=== PATIENT | female | born 1970 | race Caucasian/White ===

== ENCOUNTER 2018-04-01 09:48 | Emergency (ER) | payer OTHER ==
[2018-04-01 09:59] VITALS: BP 140/79; BMI 21.7
--- NOTE | 2018-04-01 11:29 | DR.GENAD ---
HPI - PCP Primary Care Physician: VIANCA - HPI Comment HPI Comment: WORSE TODAY. NO FEVER. US DONE IN [place] [facility]. CONTINUE TO GET WORSE. PENDING CT STUDIES. STARTED HAVING GI BLEED, PASSING BLOOD CLOTS TODAY. PAIN IS INCREASING. - Complaint/Symptoms Chief Complaint Doctors Comments: RLQ ABDOMINAL PAIN TIMES 3 MONTHS. Chief Complaint:: PT STATED SHE HAS BEEN HAVING ABD PAIN ON HER RIGHT SIDE FOR 3 MONTHS. HAD PELVIC US DONE IN [place]. SHE ALSO STATED SHE BEEN HAVING LOOSE STOOL AND BRIGHT BLOOD - Nurses notes reviewed Nurses Notes Review: Yes - Source History Provided: Patient - Mode of Arrival Mode of Arrival: Ambulatory - Timing Onset of Chief Complaint: 01/23/18 Came on: Suddenly - Duration Duration: Constant Duration: Days - Severity Severity: Moderate PMH - PMH Past Medical History: Yes Past Medical History: Anxiety Past Surgical History: Yes Surgical History: , Ectopic , [employer] INSTITUTION Surgery - Family History History of Family Medical Conditions: Yes Family Medical History: Diabetes Mellitus, Cancer, [place], Heart Failure - Social History Does patient currently use any type of tobacco product: Yes Have you used tobacco products in the last 12 months: Yes Type of Tobacco Use: Cigarettes How many years tobacco product used: 15 Does any household member use tobacco: No Alcohol Use: Rarely Do you use any recreational Drugs:: No Lives With: Family - infectious screening In the last 2 months have you had wt loss of >10#?: NO Have you had fever, night sweats or hemotysis?: No Have you traveled outside the country in the last 6 months?: No Isolation: Standard ROS - Review of Systems Constitutional: No Symptoms Reported Eyes: No Symptoms Reported ENTM: No Symptoms Reported Respiratoy: No Symptoms Reported Cardiovascular: No Symptoms Reported Gastrointestinal/Abdominal: Abdominal Pain, Diarrhea, Nausea, Vomiting Genitourinary: No Symptoms Reported. negative: Dysuria, Hematuria Neurological: Headache, Weakness, Dizziness Musculoskeletal: Muscle Pain Integumentary: No Symptoms Reported, Change in Color Hematologic/Lymphatic: No Symptoms Reported Endocrine: No Symptoms Reported Psychiatric: No Symptoms Reported All Other Systems: Reviewed and Negative PE - Vital Signs Vitals: Temperature 98.9 F Pulse Rate 72 Respiratory Rate 16 Blood Pressure 140/79 O2 Sat by Pulse Oximetry 99 - General Limitations: No Limitations General Appearance: Alert - Head Head Exam: Normal Inspection - Eyes Eye exam: Normal Appearance - ENT ENT Exam: Normal External Ear Exam External Ear Exam: Normal External Inspection TM/Canal Exam: Bilateral Normal Nose Exam: Normal Nose Exam Mouth Exam: Normal Inspection Throat Exam: Normal Inspection - Neck Neck Exam: Normal Inspection - Chest Chest Inspection: Symmetric Chest Wall Rise - Respiratory Respiratory Exam: Normal Lung Sounds Bilat Respiratory Exam: Bilateral Clear to Auscultation - Cardiovascular Cardiovascular Exam: Regular Rate, Normal Rhythm, Normal Heart Sounds - Abdominal Exam Abdominal Exam: Normal Bowel Sounds, Soft, Tenderness Abdominal Tenderness: RLQ, Moderate, Other (SOME DIFFUSE DISCOMFORT) - Extremities Extremities Exam: Normal Inspection - Back Back Exam: Normal Inspection - Neurologic Neurological Exam: Alert, Oriented X3 - Psychiatric Psychiatric Exam: Normal Affect, Normal Mood - Skin Skin Exam: Normal Color MDM - Additional Information Additional Information Obtained From: Family - Differential Diagnosis Differential Diagnosis: RLG ABDOMINAL PAIN, GI BLEEDING, APPENDICITIS, KIDNEY STONE, UTI, DIVERTICU Course - Treatment Treatment: SEE ORDERS. IV PROTONIX AND IV PHENERGAN IN ED. ROR - Labs Reviewed Laboratory Results Reviewed?: Yes Result Diagrams: 04/01/18 11:45 04/01/18 11:45 Laboratory: WBC 6.8 X10^3/uL (3.6-10.0) 04/01/18 11:45 RBC 4.76 X10^6/uL (3.5-5.4) 04/01/18 11:45 Hgb 14.1 g/dL (12.0-16.0) 04/01/18 11:45 Hct 40.7 % (36.0-47.0) 04/01/18 11:45 MCV 85.4 fL (80.0-100.0) 04/01/18 11:45 MCH 29.5 pg (27.0-34.0) 04/01/18 11:45 MCHC 34.6 g/dL (33.0-35.0) 04/01/18 11:45 RDW 13.5 % (11.6-16.5) 04/01/18 11:45 Plt Count 204 X10^3/uL (150.0-450.0) 04/01/18 11:45 MPV 10.1 fL (7.4-11.0) 04/01/18 11:45 Neut % (Auto) 55.9 % (42.0-75.0) 04/01/18 11:45 Lymph % (Auto) 36.2 % (21.0-51.0) 04/01/18 11:45 [place] % (Auto) 6.2 % (0.0-13.0) 04/01/18 11:45 Eos % (Auto) 0.9 % (0.9-2.9) 04/01/18 11:45 Baso % (Auto) 0.8 % (0.2-1.0) 04/01/18 11:45 Neut # (Auto) 3.8 x10^3/uL (2.2-4.8) 04/01/18 11:45 Lymph # (Auto) 2.5 X10^3/uL (1.3-2.9) 04/01/18 11:45 [place] # (Auto) 0.4 x10^3/uL (0.3-0.8) 04/01/18 11:45 Eos # (Auto) 0.1 x10^3/uL (0.0-0.2) 04/01/18 11:45 Baso # (Auto) 0.1 X10^3/uL (0.0-0.1) 04/01/18 11:45 Absolute Nucleated RBC 0.0 /100WBC 04/01/18 11:45 Sodium 138 mmol/L (136-145) 04/01/18 11:45 Corrected Sodium TNP 04/01/18 11:45 Potassium 3.7 mmol/L (3.5-5.1) 04/01/18 11:45 Chloride 106 mmol/L (98-107) 04/01/18 11:45 Carbon Dioxide 27.2 mmol/L (21-32) 04/01/18 11:45 BUN 14 mg/dL (7-18) 04/01/18 11:45 Creatinine 0.77 mg/dL (0.55-1.02) 04/01/18 11:45 Est GFR (MDRD) Af Amer > 60 (>60) 04/01/18 11:45 Est GFR (MDRD) Non-Af > 60 (>60) 04/01/18 11:45 Glucose 90 mg/dL (65-99) 04/01/18 11:45 Calcium 8.4 mg/dL (8.5-10.1) L 04/01/18 11:45 Corrected Calcium TNP 04/01/18 11:45 Total Bilirubin 0.40 mg/dL (0.2-1.0) 04/01/18 11:45 AST 9 Units/L (15-37) L 04/01/18 11:45 ALT 11 Units/L (12-78) L 04/01/18 11:45 Alkaline Phosphatase 57 Units/L (46-116) 04/01/18 11:45 Total Protein 7.2 g/dL (6.4-8.2) 04/01/18 11:45 Albumin 3.9 g/dL (3.4-5.0) 04/01/18 11:45 Globulin 3.3 g/dL (2.5-4.5) 04/01/18 11:45 Albumin/Globulin Ratio 1.2 Ratio (1.1-2.1) 04/01/18 11:45 Triglycerides 79 mg/dL (0-150) 04/01/18 11:45 Cholesterol 172 mg/dL (0-200) 04/01/18 11:45 LDL Cholesterol, Calc 78 mg/dL (0-100) 04/01/18 11:45 HDL Cholesterol 78 mg/dL (40-60) H 04/01/18 11:45 Cholesterol/HDL Ratio 2.2 (0.0-5.0) 04/01/18 11:45 Amylase 63 Units/L (25-115) 04/01/18 11:45 Lipase 538 Units/L (73-393) H 04/01/18 11:45 Specimen Type Clean catch urine 04/01/18 14:07 Urine Color Yellow (YELLOW) 04/01/18 14:07 Urine Appearance Clear (CLEAR) 04/01/18 14:07 Urine pH 7.0 (5.0 - 8.0) 04/01/18 14:07 Ur Specific [place] 1.005 (1.000-1.030) 04/01/18 14:07 Urine Protein Negative (NEGATIVE) 04/01/18 14:07 Urine Glucose (UA) Negative (NEGATIVE) 04/01/18 14:07 Urine Ketones Negative (NEGATIVE) 04/01/18 14:07 Urine Occult Blood Negative (NEGATIVE) 04/01/18 14:07 Urine Nitrite Negative (NEGATIVE) 04/01/18 14:07 Urine Bilirubin Negative (NEGATIVE) 04/01/18 14:07 Urine Urobilinogen Normal (NORMAL) 04/01/18 14:07 Ur Leukocyte Esterase Negative (NEGATIVE) 04/01/18 14:07 - XRAY XRAY Interpreted by: Radiologist XRAY Findings: REPORT DISCUSS WITH PATIENT. - Diagnosis Discharge Problem: Elevated lipase Abdominal pain Qualifiers: Abdominal location: unspecified location Qualified Code(s): R10.9 - Unspecified abdominal pain GI bleeding Qualifiers: GI bleed type/associated pathology: unspecified gastrointestinal hemorrhage type Qualified Code(s): K92.2 - Gastrointestinal hemorrhage, unspecified - Discharge Plan Disposition: HOME, SELF-CARE Condition: Stable Prescriptions: Ranitidine HCl [ZANTAC TAB 150 MG *] 150 mg PO BID #60 tab - Follow ups/Referrals Follow ups/Referrals: TOÑITO COLEY [Primary Care Provider] - 3 days - Instructions Instructions: Abdominal Pain, Adult, [id number], Gastrointestinal Bleeding, [id number] Additional Instructions: RETURN TO ED IF WORSE.
[2018-04-01] MEDS ORDERED: ZOFRAN INJ 4 MG VIAL ONE (11:47)
[2018-04-01] MEDS ORDERED: PHENERGAN INJ 25 MG IV ONE ×2 (11:50)
[2018-04-01] MEDS ORDERED: PHENERGAN INJ 25 MG ONE (11:51)
[2018-04-01 11:53] LABS: BASOPHILS # (AUTO) 0.1 X10^3/uL (0.0-0.1); BASOPHILS % (AUTO) 0.8 % (0.2-1.0); EOSINOPHILS # (AUTO) 0.1 x10^3/uL (0.0-0.2); EOSINOPHILS % (AUTO) 0.9 % (0.9-2.9); HEMATOCRIT 40.7 % (36.0-47.0); HEMOGLOBIN 14.1 g/dL (12.0-16.0); LYMPHOCYTES # (AUTO) 2.5 X10^3/uL (1.3-2.9); LYMPHOCYTES % (AUTO) 36.2 % (21.0-51.0); MEAN CORPUSCULAR HEMOGLOBIN 29.5 pg (27.0-34.0); MEAN CORPUSCULAR HGB CONC 34.6 g/dL (33.0-35.0); MEAN CORPUSCULAR VOLUME 85.4 fL (80.0-100.0); MEAN PLATELET VOLUME 10.1 fL (7.4-11.0); MONOCYTES # (AUTO) 0.4 x10^3/uL (0.3-0.8); MONOCYTES % (AUTO) 6.2 % (0.0-13.0); NEUTROPHILS # (AUTO) 3.8 x10^3/uL (2.2-4.8); NEUTROPHILS % (AUTO) 55.9 % (42.0-75.0); PLATELET COUNT 204 X10^3/uL (150.0-450.0); RED BLOOD COUNT 4.76 X10^6/uL (3.5-5.4); RED CELL DISTRIBUTION WIDTH 13.5 % (11.6-16.5); WHITE BLOOD COUNT 6.8 X10^3/uL (3.6-10.0)
[2018-04-01 12:03] LABS: ALANINE AMINOTRANSFERASE 11 Units/L (12-78); ALBUMIN 3.9 g/dL (3.4-5.0); ALKALINE PHOSPHATASE 57 Units/L (46-116); AMYLASE 63 Units/L (25-115); ASPARTATE AMINO TRANSFERASE 9 Units/L (15-37); BLOOD UREA NITROGEN 14 mg/dL (7-18); CALCIUM 8.4 mg/dL (8.5-10.1); CARBON DIOXIDE 27.2 mmol/L (21-32); CHLORIDE 106 mmol/L (98-107); CREATININE 0.77 mg/dL (0.55-1.02); LIPASE 538 Units/L (73-393); SODIUM 138 mmol/L (136-145); TOTAL PROTEIN 7.2 g/dL (6.4-8.2); eGFR BLACK RACES > 60 (>60); eGFR NON BLACK RACES > 60 (>60)
[2018-04-01 13:09] LABS: CHOL/HDL RATIO 2.2 (0.0-5.0)
[2018-04-01] MEDS ORDERED: PROTONIX INJ 40 MG VIAL IVP ONE (13:59)
[2018-04-01] MEDS ORDERED: PROTONIX INJ 40 MG VIAL ONE (13:59)
--- NOTE | 2018-04-01 14:10 | CT ---
History: Right lower quadrant pain Study: CT abdomen pelvis with contrast Findings: [address] imaging is performed from above the diaphragms to below the pubic symphysis following the oral ingestion of dilute contrast and during the intravenous administration 100 mL of Omnipaque 350. Coronal and sagittal reformatted images are submitted as well. Lung bases are clear an d there are no pleural effusions. The liver and spleen are normal in size and enhance uniformly. The pancreas, gallbladder, adrenal glands and kidneys appear normal the appendix is not identified with c erttenzin however there is no evidence of a peristernal inflammatory process. The uterus is anteverted . Impression: Normal CT of the abdomen and pelvis. Reported By:
[2018-04-01 14:14] LABS: BILIRUBIN,URINE NEGATIVE (NEGATIVE); BLOOD/HEMOGLOBIN,URINE NEGATIVE (NEGATIVE); GLUCOSE, URINE NEGATIVE (NEGATIVE); KETONES,URINE NEGATIVE (NEGATIVE); LEUKOCYTE ESTERASE ,URINE NEGATIVE (NEGATIVE); NITRITES,URINE NEGATIVE (NEGATIVE); PROTEIN,URINE NEGATIVE (NEGATIVE); UROBILINOGEN,URINE NORMAL (NORMAL)
[2018-04-01 14:18] LABS: APPEARANCE,URINE CLEAR (CLEAR); COLOR,URINE YELLOW (YELLOW)
== END 2018-04-01 14:47 | disposition home or self-care (01) ==
LOC: ER 10:05
DX: K92.2 Gastrointestinal hemorrhage, unspecified (principal); R10.31 Right lower quadrant pain; R74.8 Abnormal levels of other serum enzymes
CPT/HCPCS: 36415; 74177; 80053; 80061; 81003; 82150; 83690; 85025; 96365; 96374; 96375; 99283; A4222; C9113; J2405; J2550